=== PATIENT | male | born 1960 | race Caucasian/White ===

== ENCOUNTER 2019-08-27 14:16 | Outpatient (RCR) | payer BC, MEDICARE, SELFPAY ==
[2019-06-05 14:03] LABS: Prothrombin Time 22.5 Seconds (11.1-14.7)
[2019-07-22 16:35] LABS: INR 1.9; Prothrombin Time 21.1 Seconds (11.1-14.7)
[2019-08-27 15:21] LABS: INR 2.5; Prothrombin Time 26.8 Seconds (11.1-14.7)
== END 2019-09-03 23:59 | disposition home or self-care (01) ==
LOC: ANHLAB 14:16
PROVIDERS: PCP Family Medicine; Visit Provider Specialist
DX: I48.0 Paroxysmal atrial fibrillation (principal); Z79.01 Long term (current) use of anticoagulants
CPT/HCPCS: 36415; 85610